=== PATIENT | male | born 1990 | race Caucasian/White ===

== ENCOUNTER 2018-11-24 16:29 | Emergency (ER) | payer OTHER ==
--- NOTE | 2018-11-24 16:42 | ER Report ---
History and Physical Time Seen By MD: 16:42 HPI/ROS CHIEF COMPLAINT: lightheadedness, fast heart rate HISTORY OF PRESENT ILLNESS: Patient is a 28 year old male presenting to the ED after he had a 20 minute episode of lightheadedness, increased pulse rate. Patient states it started at 3:30 this afternoon. States he got very lightheaded and felt his pulse increasing to over 200 bpm. Patient stated this lasted a few minutes and then his heart rate decreased to around 50. Stated at this time he felt his heard was beating hard and heavy. Patient felt out of it and stated his words were "jumbled". After feeling better, patient walked ar ound and then felt that he should go to [employer]. [employer] then referred him to the ED. 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 patient states he has had several pacemakers. States he currently has an AICD. His lower rate is 50 and upper rate is 222. It has two leads. Patient states he does not think he has ever gotten shocked from his ICD. REVIEW OF SYSTEMS: Respiratory: No cough, no dyspnea. Cardiovascular: See HPI Gastrointestinal: No vomiting, no abdominal pain. Musculoskeletal: No back pain. 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 He has had multiple cardiac surgeries. Patient has had multiple pacemakers, currently has an AICD. Unable To Obtain Past Medical: Refused Reviewed Nurses Notes: Yes Social History of Constitutional Vital Sign - Last 24 Hours 11/24/18 11/24/18 11/24/18 11/24/18 16:38 16:40 17:00 17:11 Pulse 77 74 Resp 16 14 B/P (MAP) 164/87 (112) 164/87 128/77 (94) Pulse Ox 94 94 O2 Delivery Room Air 11/24/18 11/24/18 11/24/18 11/24/18 17:30 18:00 18:30 19:00 Pulse 50 50 50 Resp 12 9 15 9 B/P (MAP) 126/71 (89) 126/73 (90) 134/80 (98) 130/73 (92) Pulse Ox 94 94 95 77 11/24/18 11/24/18 11/24/18 11/24/18 19:05 19:20 19:30 19:35 Pulse 50 57 51 Resp 7 9 12 B/P (MAP) 134/72 (92) Pulse Ox 96 96 96 11/24/18 19:50 Pulse 57 Resp 15 Pulse Ox 93 Physical Exam General Appearance: The patient is alert, has no immediate need for airway protection and no current signs of toxicity. Eyes: Pupils equal and round no injection. Respiratory: Chest is non tender, lungs are clear to auscultation. Cardiac: Regular rate and rhythm. Radial and pedal pulses 2+ and equal bilaterally. Gastrointestinal: Abdomen is soft and non tender, no masses, bowel sounds normal. Musculoskeletal: Neck: Neck is supple and non tender. Extremities have full range of motion and are non tender. Skin: No rashes or lesions. DIFFERENTIAL DIAGNOSIS: After history and physical exam differential diagnosis was considered for cardiac arrhythmia, electrolyte imbalance, infection. Medical Decision Making Data Points Result Diagram: 11/24/18 1720 11/24/18 1720 Laboratory Hematology Test 11/24/18 17:20 11/24/18 17:21 Red Blood Count 5.06 M/uL (4.00-5.60) Mean Corpuscular Volume 92.0 fL (80.0-96.0) Mean Corpuscular Hemoglobin 31.2 pg (26.0-33.0) Mean Corpuscular Hemoglobin Concent 33.9 g/dL (32.0-36.0) Red Cell Distribution Width 13.4 % (11.5-14.5) Mean Platelet Volume 9.6 fL (7.2-11.1) Neutrophils (%) (Auto) 68.3 % (39.4-72.5) Lymphocytes (%) (Auto) 18.8 % (17.6-49.6) Monocytes (%) (Auto) 10.7 % (4.1-12.4) Eosinophils (%) (Auto) 1.7 % (0.4-6.7) Basophils (%) (Auto) 0.5 % (0.3-1.4) Nucleated RBC Relative Count (auto) 0.0 /100WBC Neutrophils # (Auto) 3.6 K/uL (2.0-7.4) Lymphocytes # (Auto) 1.0 K/uL (1.3-3.6) Monocytes # (Auto) 0.6 K/uL (0.3-1.0) Eosinophils # (Auto) 0.1 K/uL (0.0-0.5) Basophils # (Auto) 0.0 K/uL (0.0-0.1) Nucleated RBC Absolute Count (auto) 0.00 K/uL Sodium Level 141 mmol/L (137-145) Potassium Level 4.9 mmol/L (3.5-5.0) Chloride Level 105 mmol/L (98-107) Carbon Dioxide Level 28 mmol/L (22-30) Blood Urea Nitrogen 20 mg/dl (9-21) Creatinine 1.10 mg/dl (0.66-1.25) Glomerular Filtration Rate Calc > 60.0 Random Glucose 100 mg/dl (75-110) Calcium Level 9.5 mg/dl (8.4-10.2) Magnesium Level 2.2 mg/dl (1.7-2.2) Total Bilirubin 0.8 mg/dl (0.2-1.3) Aspartate Amino Transf (AST/SGOT) 35 U/L (0-35) Alanine Aminotransferase (ALT/SGPT) 45 U/L (0-56) Alkaline Phosphatase 54 U/L (0-126) Troponin I < 0.012 ng/ml Total Protein 7.6 g/dl (6.3-8.2) Albumin 4.5 g/dl (3.5-5.0) Influenza Virus Type A (PCR) Negative (NEGATIVE) Influenza Virus Type B (PCR) Negative (NEGATIVE) Chemistry Test 11/24/18 17:20 11/24/18 17:21 White Blood Count 5.3 k/uL (4.5-11.0) Red Blood Count 5.06 M/uL (4.00-5.60) Hemoglobin 15.8 g/dL (14.0-18.0) Hematocrit 46.6 % (42.0-52.0) Mean Corpuscular Volume 92.0 fL (80.0-96.0) Mean Corpuscular Hemoglobin 31.2 pg (26.0-33.0) Mean Corpuscular Hemoglobin Concent 33.9 g/dL (32.0-36.0) Red Cell Distribution Width 13.4 % (11.5-14.5) Platelet Count 189 K/uL (150-450) Mean Platelet Volume 9.6 fL (7.2-11.1) Neutrophils (%) (Auto) 68.3 % (39.4-72.5) Lymphocytes (%) (Auto) 18.8 % (17.6-49.6) Monocytes (%) (Auto) 10.7 % (4.1-12.4) Eosinophils (%) (Auto) 1.7 % (0.4-6.7) Basophils (%) (Auto) 0.5 % (0.3-1.4) Nucleated RBC Relative Count (auto) 0.0 /100WBC Neutrophils # (Auto) 3.6 K/uL (2.0-7.4) Lymphocytes # (Auto) 1.0 K/uL (1.3-3.6) Monocytes # (Auto) 0.6 K/uL (0.3-1.0) Eosinophils # (Auto) 0.1 K/uL (0.0-0.5) Basophils # (Auto) 0.0 K/uL (0.0-0.1) Nucleated RBC Absolute Count (auto) 0.00 K/uL Glomerular Filtration Rate Calc > 60.0 Calcium Level 9.5 mg/dl (8.4-10.2) Magnesium Level 2.2 mg/dl (1.7-2.2) Total Bilirubin 0.8 mg/dl (0.2-1.3) Aspartate Amino Transf (AST/SGOT) 35 U/L (0-35) Alanine Aminotransferase (ALT/SGPT) 45 U/L (0-56) Alkaline Phosphatase 54 U/L (0-126) Troponin I < 0.012 ng/ml Total Protein 7.6 g/dl (6.3-8.2) Albumin 4.5 g/dl (3.5-5.0) Influenza Virus Type A (PCR) Negative (NEGATIVE) Influenza Virus Type B (PCR) Negative (NEGATIVE) EKG/Imaging EKG Interpretation 12 lead EKG: Rhythm: Sinus bradycardia with sinus arrhythmia, ventricular rate of 56 bpm [place]: Left axis deviation QRS: normal ST segments: normal Imaging 2 VIEWS CHEST INDICATION: Heart racing. COMPARISON: None available FINDINGS: Cardiomediastinal silhouette and pulmonary vessels within normal limits. Left subclavian 2-lead pacemaker is in place. Proximal aortic stent in place. There is no focal infiltrate or lobar consolidation. There is no pneumothorax or pleural effusion. No nodule. Upper abdomen is unremarkable. No acute bony abnormality. IMPRESSION: 1. No acute cardiopulmonary process. Report Dictated By: Britton Mata at 11/24/2018 7:11 PM Report E-Signed By: Britton Mata at 11/24/2018 7:13 PM ED Course/Re-evaluation ED Course Patient was admitted to an ED room and placed in a bed. History and physical were obtained. Differential diagnoses were obtained. IV was placed and blood drawn. Labs, EKG, Chest X-ray were obtained. Results were discussed with the patient. Patient will follow up with his director of physician practices back home. Patient discharged to home. Decision to Disposition Date: Nov 24, 2018 Decision to Disposition Time: 19:53 Depart Departure Latest Vital Signs Vital Signs Date Time Temp Pulse Resp B/P (MAP) Pulse Ox O2 Delivery O2 Flow Rate FiO2 11/24/18 19:50 57 15 93 11/24/18 19:30 134/72 (92) 11/24/18 16:40 Room Air Impression: Primary Impression: Irregular heart rate Condition: Improved Disposition: HOME OR SELF-CARE Patient Instructions: GENERAL ER DISCHARGE INSTRUCTIONS Additional Instructions: Increase fluid intake. Follow up with [facility] as needed. Return to the ER if condition worsens. Take your medications like normal. Follow up with Cardiology in the next 1-2 months. GEMA PRITCHARD Nov 24, 2018 16:42
[2018-11-24] MEDS ORDERED: METO25TA91 PO (16:43)
[2018-11-24] MEDS ORDERED: NS(*) 0.9% 1000 ML BAG 1,000 ML IV ONE (16:48)
--- NOTE | 2018-11-24 16:51 | EKG ---
FACILITY: [facility] PATIENT NAME: JULIANE SAAB : [id number] MR: [id number] V: [id number] EXAM DATE: ORDERING PHYSICIAN: GEMA PRITCHARD TECHNOLOGIST: CHRISTINA Test Reason : SYNCOPE Blood Pressure : / mmHG Vent. Rate : 056 BPM Atrial Rate : 056 BPM P-R Int : 174 ms QRS Dur : 104 ms QT Int : 396 ms P-R-T Axes : 055 -71 020 degrees QTc Int : 382 ms Sinus bradycardia with sinus arrhythmia Left axis deviation Inferior-posterior infarct , age undetermined Abnormal ECG No previous ECGs available Confirmed by JOHAN ANG ([id number]) on 11/24/2018 7:54:06 PM Referred By: FRANCHESKA Confirmed By:JOHAN ANG
[2018-11-24 17:28] LABS: PLATELET COUNT, AUTOMATED 189 K/uL (150-450)
--- NOTE | 2018-11-24 19:17 | RADIOLOGY IMAGING REPORT ---
FACILITY: [facility] [place] PATIENT NAME: Reese Vanegas : 1990 MR: [id number] V: [id number] EXAM DATE: ORDERING PHYSICIAN: GEMA PRITCHARD TECHNOLOGIST: [place] [facility] [place] Reese Van[place] : 1990 Visit/Account:[id number] Date of Sevice: 11/24/2018 2 VIEWS CHEST INDICATION: Heart racing. COMPARISON: None available FINDINGS: Cardiomediastinal silhouette and pulmonary vessels within normal limits. Left subclavian 2-lead pacem jeanne is in place. Proximal aortic stent in place. There is no focal infiltrate or lobar consolidation. There is no pneumothorax or pleural effusion. No nodule. Upper abdomen is unremarkable. No acute bony abnormality. IMPRESSION: 1. No acute cardiopulmonary process. Report Dictated By: Britton Mata at 11/24/2018 7:11 PM Report E-Signed By: Britton Mata at 11/24/2018 7:13 PM WSN:[id number]
[2018-11-24 19:30] VITALS: BP 134/72
== END 2018-11-24 20:06 | disposition home or self-care (01) ==
LOC: ER 16:48
DX: I49.9 Cardiac arrhythmia, unspecified (principal); Z95.810 Presence of automatic (implantable) cardiac defibrillator
CPT/HCPCS: 71046; 83735; 84443; 84484; 85025; 87502; 93005; 96360; 99284; J7030; 82040; 82247; 82310; 82374; 82435; 82565; 82947; 84075; 84132; 84155; 84295; 84450; 84460; 84520; 99283

== ENCOUNTER 2019-03-15 23:08 | Emergency (ER) | payer OTHER ==
--- NOTE | 2019-03-15 23:22 | ER Report ---
History and Physical Time Seen By MD: 23:09 Hx. of Stated Complaint: PATIENT HAS INTERNAL DEFIB THAT SHOCKED HIM ABOUT IN AN HOUR AGO. (HESHAM SWAIN DO) Time Seen By MD: 07:00 (TARYN ORTIZ DO) HPI/ROS CHIEF COMPLAINT: AICD discharged HISTORY OF PRESENT ILLNESS: 29-year-old male brought in by ambulance from home. Approximate one hour ago. He has AICD discharge. Patient had surgery as a child for transposition of the great vessels. He's had numerous pacemakers to monitor his heart rate. He's never had his AICD discharge before. He had tachycardia back in November. REVIEW OF SYSTEMS: Respiratory: No cough, no dyspnea. Cardiovascular: As above Gastrointestinal: No vomiting, no abdominal pain. Musculoskeletal: No back pain. (HESHAM SWAIN DO) HPI/ROS Please see Dr. Swain's note (TARYN ORTIZ DO) Allergies: Coded Allergies: No Known Drug Allergies (Unverified , 11/24/18) Home Meds Reported Medications Metoprolol Succinate (TOPROL XL) 25 Mg Tab.er.24h, 1 TAB PO QAM, TAB 11/24/18 Constitutional Vital Sign - Last 24 Hours 03/15/19 03/15/19 03/15/19 03/15/19 23:09 23:23 23:30 23:38 Temp 98.5 Pulse 89 93 80 Resp 24 23 8 B/P (MAP) 146/82 119/77 (91) Pulse Ox 92 91 89 O2 Delivery Room Air 03/15/19 03/16/19 03/16/19 03/16/19 23:53 00:00 00:30 00:38 Pulse 101 94 Resp 20 28 B/P (MAP) 125/83 (97) 123/65 (84) 03/16/19 03/16/19 03/16/19 03/16/19 00:53 01:00 01:08 01:28 Pulse 84 80 76 Resp 11 9 10 B/P (MAP) 120/75 (90) Pulse Ox 91 91 03/16/19 03/16/19 03/16/19 03/16/19 01:30 01:43 02:00 02:13 Pulse 71 50 Resp 13 15 B/P (MAP) 115/59 (77) 106/60 (75) Pulse Ox 91 90 03/16/19 03/16/19 03/16/19 03/16/19 02:28 02:30 02:43 02:58 Pulse 50 53 53 Resp 15 15 16 B/P (MAP) 114/66 (82) Pulse Ox 90 93 92 03/16/19 03/16/19 03/16/19 03/16/19 03:00 03:05 03:20 03:30 Pulse 67 50 Resp 22 15 B/P (MAP) 109/58 (75) 109/56 (73) Pulse Ox 93 94 03/16/19 03/16/19 03/16/19 03/16/19 03:35 03:50 04:00 04:05 Pulse 50 50 60 Resp 14 15 14 B/P (MAP) 114/68 (83) Pulse Ox 92 90 93 03/16/19 03/16/19 03/16/19 03/16/19 04:20 04:30 04:40 04:55 Pulse 73 50 55 Resp 10 B/P (MAP) 117/66 (83) Pulse Ox 91 03/16/19 03/16/19 03/16/19 03/16/19 05:00 05:10 05:15 05:20 Pulse 50 73 50 Resp 15 17 0 B/P (MAP) 116/68 (84) Pulse Ox 90 90 91 03/16/19 03/16/19 03/16/19 03/16/19 05:30 05:35 05:40 05:45 Pulse 55 67 50 Resp 33 24 B/P (MAP) 119/67 (84) Pulse Ox 91 93 03/16/19 03/16/19 03/16/19 03/16/19 05:50 05:55 06:00 06:10 Pulse 49 50 50 Resp 25 25 28 B/P (MAP) 110/62 (78) Pulse Ox 89 93 93 03/16/19 03/16/19 03/16/19 03/16/19 06:25 06:30 06:40 06:55 Pulse 50 50 50 Resp 14 17 17 B/P (MAP) 114/72 (86) Pulse Ox 91 89 90 03/16/19 03/16/19 03/16/19 03/16/19 07:00 07:05 07:25 07:45 Pulse 71 72 49 Resp 28 27 B/P (MAP) 120/72 (88) Pulse Ox 93 03/16/19 03/16/19 03/16/19 03/16/19 08:05 08:25 08:45 08:46 Pulse 49 54 59 64 Resp 13 19 11 10 03/16/19 03/16/19 03/16/19 03/16/19 09:06 09:26 09:46 10:26 Pulse 49 52 52 49 Resp 32 21 22 03/16/19 03/16/19 03/16/19 03/16/19 10:28 10:48 11:08 11:28 Pulse 49 49 49 48 Resp 37 15 15 9 Intake and Output 03/15/19 03/15/19 03/16/19 15:01 23:01 07:01 Intake Total 1000 ml Balance 1000 ml (TARYN ORTIZ DO) Physical Exam Vital signs stable, afebrile, pulse ox normal General Appearance: The patient is alert, has no immediate need for airway protection and no current signs of toxicity. No acute distress HEENT: Pupils equal and round no injection. TMs normal, oropharynx without redness or exudate Respiratory: Chest is non tender, lungs are clear to auscultation. Cardiac: regular rate and rhythm Gastrointestinal: Abdomen is soft and non tender, no masses, bowel sounds normal. Musculoskeletal: Neck: Neck is supple and non tender. Extremities have full range of motion and are non tender. Skin: No rashes or lesions. DIFFERENTIAL DIAGNOSIS: After history and physical exam differential diagnosis was considered for chest pain including but not limited to myocardial ischemia, pericarditis pulmonary embolus, AICD discharge, dysrhythmia chest wall pain, pleural inflammation and pulmonary infectious causes. (HESHAM SWAIN DO) Physical Exam Please see Dr. Swain's note (TARYN ORTIZ DO) Medical Decision Making Data Points Result Diagram: 03/15/19 2344 03/16/19 0403 Laboratory Hematology Test 03/15/19 23:44 03/16/19 00:00 03/16/19 04:03 Red Blood Count 4.97 M/uL (4.00-5.60) Mean Corpuscular Volume 91.0 fL (80.0-96.0) Mean Corpuscular Hemoglobin 31.4 pg (26.0-33.0) Mean Corpuscular Hemoglobin Concent 34.6 g/dL (32.0-36.0) Red Cell Distribution Width 13.4 % (11.5-14.5) Mean Platelet Volume 9.9 fL (7.2-11.1) Neutrophils (%) (Auto) 70.9 % (39.4-72.5) Lymphocytes (%) (Auto) 18.6 % (17.6-49.6) Monocytes (%) (Auto) 10.0 % (4.1-12.4) Eosinophils (%) (Auto) 0.3 % (0.4-6.7) Basophils (%) (Auto) 0.2 % (0.3-1.4) Nucleated RBC Relative Count (auto) 0.0 /100WBC Neutrophils # (Auto) 4.4 K/uL (2.0-7.4) Lymphocytes # (Auto) 1.2 K/uL (1.3-3.6) Monocytes # (Auto) 0.6 K/uL (0.3-1.0) Eosinophils # (Auto) 0.0 K/uL (0.0-0.5) Basophils # (Auto) 0.0 K/uL (0.0-0.1) Nucleated RBC Absolute Count (auto) 0.00 K/uL Peripheral Blood Smear Yes Y/N Magnesium Level 1.8 mg/dl (1.7-2.2) Total Bilirubin 0.8 mg/dl (0.2-1.3) Aspartate Amino Transf (AST/SGOT) 34 U/L (0-35) Alanine Aminotransferase (ALT/SGPT) 49 U/L (0-56) Alkaline Phosphatase 71 U/L (0-126) B-Type Natriuretic Peptide 14 pg/ml (0-100) Total Protein 6.7 g/dl (6.3-8.2) Albumin 4.1 g/dl (3.5-5.0) Total Creatine Kinase 240 U/L (55-170) Sodium Level 140 mmol/L (137-145) Potassium Level 4.4 mmol/L (3.5-5.0) Chloride Level 109 mmol/L (98-107) Carbon Dioxide Level 20 mmol/L (22-30) Blood Urea Nitrogen 25 mg/dl (9-21) Creatinine 1.50 mg/dl (0.66-1.25) Glomerular Filtration Rate Calc 55.0 Random Glucose 106 mg/dl (75-110) Calcium Level 9.0 mg/dl (8.4-10.2) Troponin I 0.111 ng/ml Chemistry Test 03/15/19 23:44 03/16/19 00:00 03/16/19 04:03 White Blood Count 6.3 k/uL (4.5-11.0) Red Blood Count 4.97 M/uL (4.00-5.60) Hemoglobin 15.6 g/dL (14.0-18.0) Hematocrit 45.2 % (42.0-52.0) Mean Corpuscular Volume 91.0 fL (80.0-96.0) Mean Corpuscular Hemoglobin 31.4 pg (26.0-33.0) Mean Corpuscular Hemoglobin Concent 34.6 g/dL (32.0-36.0) Red Cell Distribution Width 13.4 % (11.5-14.5) Platelet Count 149 K/uL (150-450) Mean Platelet Volume 9.9 fL (7.2-11.1) Neutrophils (%) (Auto) 70.9 % (39.4-72.5) Lymphocytes (%) (Auto) 18.6 % (17.6-49.6) Monocytes (%) (Auto) 10.0 % (4.1-12.4) Eosinophils (%) (Auto) 0.3 % (0.4-6.7) Basophils (%) (Auto) 0.2 % (0.3-1.4) Nucleated RBC Relative Count (auto) 0.0 /100WBC Neutrophils # (Auto) 4.4 K/uL (2.0-7.4) Lymphocytes # (Auto) 1.2 K/uL (1.3-3.6) Monocytes # (Auto) 0.6 K/uL (0.3-1.0) Eosinophils # (Auto) 0.0 K/uL (0.0-0.5) Basophils # (Auto) 0.0 K/uL (0.0-0.1) Nucleated RBC Absolute Count (auto) 0.00 K/uL Peripheral Blood Smear Yes Y/N Magnesium Level 1.8 mg/dl (1.7-2.2) Total Bilirubin 0.8 mg/dl (0.2-1.3) Aspartate Amino Transf (AST/SGOT) 34 U/L (0-35) Alanine Aminotransferase (ALT/SGPT) 49 U/L (0-56) Alkaline Phosphatase 71 U/L (0-126) B-Type Natriuretic Peptide 14 pg/ml (0-100) Total Protein 6.7 g/dl (6.3-8.2) Albumin 4.1 g/dl (3.5-5.0) Total Creatine Kinase 240 U/L (55-170) Glomerular Filtration Rate Calc 55.0 Calcium Level 9.0 mg/dl (8.4-10.2) Troponin I 0.111 ng/ml (TARYN ORTIZ DO) EKG/Imaging EKG Interpretation 12 lead EK Rhythm: normal sinus rhythm with sinus arrhythmia [place]: Left axis deviation QRS: Left ventricular hypertrophy with repolarization abnormality,? Inferior posterior infarct, age indeterminate ST segments: Nonspecific diffuse ST changes, comparison to previous EKG dated 11/24/18, no significant change (HESHAM SWAIN DO) Imaging PATIENT NAME: Reese Vanegas : 1990 MR: [id number] V: [id number] EXAM DATE: ORDERING PHYSICIAN: HESHAM SWAIN TECHNOLOGIST: [facility]: [facility] [place] Patient: Reese Vanegas : 1990 Visit/Account:[id number] Date of Sevice: 03/15/2019 CHEST SINGLE AP Indication: Chest Pain Comparison: November 24, 2018 Findings: Heart size within normal limits. Grossly unchanged appearance of left chest wall pacer/AICD device without visualized complication. There is a vascular stent projecting over the right heart border. There is no focal infiltrate or lobar consolidation. No pneumothorax or pleural effusion. IMPRESSION: 1. No acute cardiopulmonary process. (TARYN ORTIZ DO) ED Course/Re-evaluation Clinical Indication for ER IV: Hydration, IV Access ED Course Patient was admitted to an examination room. H&P was done. The differential diagnosis was considered. Patient had spontaneous discharge of his AICD tonight. Patient otherwise feels fine. EKG performed shows no obvious changes compared to his previous EKG. Diagnostic studies returned with an elevated troponin of 0.041 in the indeterminate zone likely from the discharge of the AICD. Patient's BUN & creatinine are grossly elevated at 27 and 2.2. Compared to previous visit from November showing 20 and 1.1. Patient on further questioning admits to heavy workout regime where he is taking supplemental creatine. Patient also admits to gout and taking NSAIDs in the form of Indocin for great toe pain. He last thinks he took some Indocin 4-5 days ago. Approximately 2-3 doses. Patient denies any history of rhabdomyolysis. A CPK was added to his blood studies from his 1st arrival. Repeat troponin and BNP are ordered at 0 4 AM after fluid hydration. 03/16/2019 5:01:[address] Sheldon social sciences department chair fiction and nonfiction prose writer at [place], [place]. He would be willing to accept the patient but they have no bed availability at this time. He advises rechecking back in approximately 3-4 hours. He will notify the daytime adult congenital docs of his status. Decision to Disposition Date: Mar 16, 2019 Decision to Disposition Time: 00:49 (HESHAM SWAIN DO) ED Course Please see Dr. Swain's note for further details. I assume patient care at shift change at 7:00. Patient remained hemodynamically stable throughout ED course. Patient was accepted to [facility] in [facility] by Dr. Sheldon. Patient was transferred via ambulance for further treatment and care. Decision to Disposition Date: Mar 16, 2019 Decision to Disposition Time: 12:35 (TARYN ORTIZ DO) Depart Departure Latest Vital Signs Vital Signs Date Time Temp Pulse Resp B/P (MAP) Pulse Ox O2 Delivery O2 Flow Rate FiO2 03/16/19 11:28 48 9 03/16/19 07:05 93 03/16/19 07:00 120/72 (88) 03/15/19 23:09 98.5 Room Air (TARYN ORTIZ DO) Impression: Primary Impression: AICD discharge Additional Impressions: Vessels transposition, great Acute renal failure Elevated troponin Condition: Improved Disposition: XFER TO ACUTE CARE HOSPITAL ([facility]) Problem Qualifiers Additional Impressions: Acute renal failure Acute renal failure type: unspecified Qualified Codes: N17.9 - Acute kidney failure, unspecified HESHAM SWAIN DO Mar 15, 2019 23:22 TARYN ORTIZ DO Mar 16, 2019 07:26
--- NOTE | 2019-03-15 23:47 | EKG ---
FACILITY: [facility] - [place] PATIENT NAME: JULIANE SAAB : [id number] MR: [id number] V: [id number] EXAM DATE: ORDERING PHYSICIAN: HESHAM TIERNEY TECHNOLOGIST: YONI Braga Reason : HX VTAC, AICD Blood Pressure : / mmHG Vent. Rate : 082 BPM Atrial Rate : 082 BPM P-R Int : 158 ms QRS Dur : 104 ms QT Int : 366 ms P-R-T Axes : 061 -66 059 degrees QTc Int : 427 ms Sinus rhythm Left axis deviation Nonspecific interventricular conduction delay T wave inversion V1-2 Abnormal ECG Confirmed by KURT GRAYSON ([id number]) on 03/16/2019 6:52:09 AM Referred By: Confirmed By:KURT GRAYSON
[2019-03-16] LABS: PLATELET COUNT, AUTOMATED 149 K/uL (150-450)
[2019-03-16] MEDS ORDERED: ACETAMINOPHEN 325 MG TAB PO ONE (00:50)
--- NOTE | 2019-03-16 00:54 | RADIOLOGY IMAGING REPORT ---
FACILITY: [facility] PATIENT NAME: Reese Vanegas : 1990 MR: [id number] V: [id number] EXAM DATE: ORDERING PHYSICIAN: HESHAM TIERNEY TECHNOLOGIST: Location: [facility] Patient: Reese Vanegas : 1990 Visit/Account:[id number] Date of Sevice: 03/15/2019 CHEST SINGLE AP Indication: Chest Pain Comparison: November 24, 2018 Findings: Heart size within normal limits. Grossly unchanged appearance of left chest wall pacer/AICD device without visualized complication. There is a vascular stent projecting over the right heart border. There is no focal infiltrate or lobar consolidation. No pneumothorax or pleural effusion. IMPRESSION: 1. No acute cardiopulmonary process. Report Dictated By: Noah Meza MD at 03/16/2019 12:47 AM Report E-Signed By: Noah Meza MD at 03/16/2019 12:48 AM WSN:[id number]
[2019-03-16] MEDS ORDERED: NS(*) 0.9% 1000 ML BAG 1,000 ML IV ONE (01:00)
[2019-03-16] MEDS ORDERED: ASPIRIN 81 MG CHEW PO ONE (05:05)
[2019-03-16] MEDS ORDERED: METOPROLOL SUCC XL 25 MG TABCR PO ONE (05:20)
[2019-03-16 07:00] VITALS: BP 120/72
== END 2019-03-16 13:29 | disposition short-term general hospital (02) ==
LOC: ER 23:21
DX: Q20.3 Discordant ventriculoarterial connection (principal); T82.897A Other specified complication of cardiac prosthetic devices, implants and grafts, initial encounter; R79.89 Other specified abnormal findings of blood chemistry; I45.89 Other specified conduction disorders; R07.9 Chest pain, unspecified
CPT/HCPCS: 36415; 71045; 82550; 83735; 83880; 84484; 85025; 93005; 99285; J7030; 82040; 82247; 82310; 82374; 82435; 82565; 82947; 84075; 84132; 84155; 84295; 84450; 84460; 84520

== ENCOUNTER → 2019-03-15 | Outpatient (CLI) | payer OTHER ==
[~2019-03-15] MED LIST: METO25TA91 PO
== END ==
LOC: AMB 22:40
PROVIDERS: ATTEND Nurse Practitioner
DX: I49.9 Cardiac arrhythmia, unspecified (principal); F41.9 Anxiety disorder, unspecified
CPT/HCPCS: A0425; A0427

== ENCOUNTER → 2019-03-16 | Outpatient (CLI) | payer OTHER | LOC: AMB 13:07 | PROVIDERS: ATTEND Nurse Practitioner | DX: R79.89 Other specified abnormal findings of blood chemistry (principal); Z95.0 Presence of cardiac pacemaker | CPT/HCPCS: A0425; A0428 ==

== ENCOUNTER 2019-05-11 14:38 | Emergency (ER) | payer OTHER ==
--- NOTE | 2019-05-11 14:39 | ER Report ---
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 Patient reports that he had multiple episodes of near syncope prompting evaluation. Patient was found be orthostatic by EMS. Patient denies chest pain, shortness of breath, fevers or chills. Patient does take Toprol, sotalol,eliquis. REVIEW OF SYSTEMS: Constitutional: No fever, no chills. Eyes: No discharge. ENT: No sore throat. Cardiovascular: No chest pain, no palpitations. Respiratory: No cough, no shortness of breath. Gastrointestinal: No abdominal pain, no vomiting. Genitourinary: No hematuria. Musculoskeletal: No back pain. Skin: No rashes. Neurological: No headache. + near syncope, generalized fatigue Allergies: Coded Allergies: No Known Drug Allergies (Unverified , 11/24/18) Home Meds Reported Medications Metoprolol Succinate (TOPROL XL) 25 Mg Tab.er.24h, 1 TAB PO QAM, TAB 11/24/18 Constitutional Vital Sign - Last 24 Hours 05/11/19 05/11/19 14:40 14:49 Temp 99.4 Pulse 66 Resp 16 B/P (MAP) 130/70 Pulse Ox 91 O2 Delivery Room Air O2 Flow Rate 2.0 Physical Exam General Appearance: The patient is alert, has no immediate need for airway protection and no signs of toxicity. NAD Eyes: Pupils equal and round no pallor or injection. ENT, Mouth: Mucous membranes are dry Respiratory: There are no retractions, lungs are clear to auscultation. Cardiovascular: Regular rate and rhythm. Gastrointestinal: Abdomen is soft and non tender, no masses, bowel sounds normal. Neurological: Alert and oriented, no focal neurological deficits Skin: Warm and dry, no rashes. Musculoskeletal: Neck is supple non tender. Extremities are nontender, nonswollen and have full range of motion. DIFFERENTIAL DIAGNOSIS: After history and physical exam differential diagnosis was considered for syncope including but not limited to vasovagal syncope, arrhythmia, dehydration, and blood loss. Medical Decision Making Data Points Result Diagram: 05/11/19 1414 05/11/19 1414 Laboratory Hematology Test 05/11/19 14:14 White Blood Count 9.7 k/uL (4.5-11.0) Red Blood Count 5.91 M/uL (4.00-5.60) H Hemoglobin 18.7 g/dL (14.0-18.0) H Hematocrit 54.4 % (42.0-52.0) H Mean Corpuscular Volume 92.1 fL (80.0-96.0) Mean Corpuscular Hemoglobin 31.6 pg (26.0-33.0) Mean Corpuscular Hemoglobin Concent 34.3 g/dL (32.0-36.0) Red Cell Distribution Width 14.1 % (11.5-14.5) Platelet Count 147 K/uL (150-450) L Mean Platelet Volume 10.4 fL (7.2-11.1) Neutrophils (%) (Auto) 86.9 % (39.4-72.5) H Lymphocytes (%) (Auto) 8.2 % (17.6-49.6) L Monocytes (%) (Auto) 4.5 % (4.1-12.4) Eosinophils (%) (Auto) 0.0 % (0.4-6.7) L Basophils (%) (Auto) 0.4 % (0.3-1.4) Nucleated RBC Relative Count (auto) 0.0 /100WBC Neutrophils # (Auto) 8.4 K/uL (2.0-7.4) H Lymphocytes # (Auto) 0.8 K/uL (1.3-3.6) L Monocytes # (Auto) 0.4 K/uL (0.3-1.0) Eosinophils # (Auto) 0.0 K/uL (0.0-0.5) Basophils # (Auto) 0.0 K/uL (0.0-0.1) Nucleated RBC Absolute Count (auto) 0.00 K/uL Chemistry Test 05/11/19 14:14 Sodium Level 139 mmol/L (137-145) Potassium Level 4.0 mmol/L (3.5-5.0) Chloride Level 99 mmol/L (98-107) Carbon Dioxide Level 25 mmol/L (22-30) Blood Urea Nitrogen 20 mg/dl (9-21) Creatinine 1.50 mg/dl (0.66-1.25) Glomerular Filtration Rate Calc 55.0 Random Glucose 110 mg/dl (75-110) Calcium Level 9.6 mg/dl (8.4-10.2) Total Bilirubin 2.4 mg/dl (0.2-1.3) Aspartate Amino Transf (AST/SGOT) 38 U/L (0-35) Alanine Aminotransferase (ALT/SGPT) 59 U/L (0-56) Alkaline Phosphatase 72 U/L (0-126) Troponin I < 0.012 ng/ml Total Protein 9.1 g/dl (6.3-8.2) Albumin 5.0 g/dl (3.5-5.0) Lipase 194 U/L (23-300) Urinalysis Test 05/11/19 00:00 Urine Color Yellow Urine Clarity Clear Urine pH 5.0 pH (4.8-9.5) Urine Specific [place] 1.029 Urine Protein Negative mg/dL (NEGATIVE) Urine Glucose (UA) Negative mg/dL (NEGATIVE) Urine Ketones Trace mg/dL (NEGATIVE) Urine Blood Negative (NEGATIVE) Urine Nitrite Negative (NEGATIVE) Urine Bilirubin Negative (NEGATIVE) Urine Urobilinogen Negative mg/dL (0.2-1.9) Urine Leukocyte Esterase Negative (NEGATIVE) Urine RBC <1 /HPF (0-2/HPF) Urine WBC 1 /HPF (0-5/HPF) Urine Squamous Epithelial Cells Few /LPF (</=FEW) Urine Bacteria Negative /HPF (NONE-FEW) Urine Hyaline Casts Few /LPF (NONE-FEW) Urine Mucus Few /HPF (NONE-FEW) EKG/Imaging EKG Interpretation 12 lead EKG: Electronic atrial pacemaker, ventricular rate 60, QTC 4:30 Rhythm: Electronic atrial pacemaker Imaging PATIENT NAME: Reese Vanegas : 1990 MR: [id number] V: [id number] EXAM DATE: ORDERING PHYSICIAN: TARYN ORTIZ TECHNOLOGIST: Location: [facility] Patient: Reese Vanegas : 1990 Visit/Account:[id number] Date of Sevice: 05/11/2019 CT ABDOMEN PELVIS W/ CON HISTORY: Elevated transaminitis TECHNIQUE: Following administration of IV contrast contiguous axial images acquired through the abdomen/pelvis. Coronal and sagittal reformatting also performed.Dose Lowering Technique One of the following dose optimization techniques was utilized in the performance of this exam: Automated exposure control; adjustment of the mA and/or kV according to the patient's size; or use of an iterative reconstruction technique. Specific details can be referenced in the facility's radiology CT exam operational policy. CONTRAST: 75 mL Isovue-370 COMPARISON: None. FINDINGS: Visualized lung bases: Incompletely imaged are cardiac pacemaker/AICD leads Hepatobiliary: Negative. Spleen: Negative. Adrenals: Negative. Pancreas: Negative. Kidneys ureters or bladder: Negative. Genitalia: Negative. GI: There is diverticulosis of the left-sided the colon although no CT evidence of acute diverticulitis Vessels/spaces/nodes: Negative. Bones/soft tissues: Bilateral inguinal hernias containing fat. Mild spondylotic changes of the lower thoracic spine Additional findings: None pertinent. IMPRESSION: Diverticulosis of the left-sided the colon Additional chronic findings as described Report Dictated By: Maya Higginbotham MD at 05/11/2019 3:42 PM Report E-Signed By: Maya Higginbotham MD at 05/11/2019 3:49 PM WSN:[email or web address] PATIENT NAME: Reese Vanegas : 1990 MR: [id number] V: [id number] EXAM DATE: [id number] ORDERING PHYSICIAN: TARYN ORTIZ TECHNOLOGIST: Location: [facility] Patient: Reese Vanegas : 1990 Visit/Account:[id number] Date of Sevice: 05/11/2019 Exam type: CHEST SINGLE AP History: Near syncope, elevated transaminases, heart issues Comparison: March 15, 2019. Findings: Again noted is a vascular stent projecting over the right heart border. Again is a dual lead cardiac pacemaker/AICD device. Cardiac silhouette does not appear enlarged. There is mild chronic peribronchial thickening bilaterally. There is no evidence of acute pulmonary consolidation pleural effusions or overt pulmonary edema. IMPRESSION: 1. No acute cardiopulmonary process is seen Chronic changes as described above Report Dictated By: Maya Higginbotham MD at 05/11/2019 3:40 PM Report E-Signed By: Maya Higginbotham MD at 05/11/2019 3:42 PM WSN:[email or web address] PATIENT NAME: Reese Vanegas : 1990 MR: [id number] V: [id number] EXAM DATE: ORDERING PHYSICIAN: TARYN ORTIZ TECHNOLOGIST: Location: [facility] Patient: Reese Vanegas : 1990 Visit/Account:[id number] Date of Sevice: 05/11/2019 CT Head without contrast Indication: No syncope. Neck pain and stiffness. Comparison: None available Technique: Axial CT images were obtained through the brain from the skull base to the vertex without administration of IV contrast. Reformatted coronal and sagittal images were also obtained. One of the following dose optimization techniques was utilized in the performance of this exam: automated exposure control; adjustment of the mA and/or kV according to the patient's size; or use of an iterative reconstruction technique. Specific details can be referenced in the facility's radiology CT exam operational policy. Findings: No evidence of mass, mass effect, or midline shift. No acute intracranial hemorrhage or acute territorial infarction. No extra-axial fluid collection or hydrocephalus. No abnormal density. Bates/white matter differentiation appears normal. Bony structures show no fractures or lesions. The visualized paranasal sinuses and mastoid air cells are clear. IMPRESSION: 1. Negative unenhanced CT of the head. Report Dictated By: Britton Mata at 05/11/2019 3:43 PM Report E-Signed By: Britton Mata at 05/11/2019 3:47 PM WSN:[id number] ED Course/Re-evaluation ED Course Patient is a 29-year-old male here with complaints of near syncope in the setting of dehydration with positive orthostatic hypotension. Patient admits that he has not been keeping up with his fluids over the past [address] imaging of the head showed no acute finding this, chest x-ray was clear. CT imaging of the abdomen and pelvis was completed after bilirubin, LFTs came back mildly elevated. CT imaging of the abdomen and pelvis showed no acute findings. Creatinine came back mildly elevated at 1.5, based on clinical examination likel y secondary to prerenal etiology such as dehydration. Patient's orthostatics were reassessed after 2 L normal saline bolus which improved. Troponin was negative. EKG showed normal sinus rhythm. I updated the patient regarding these findings and he voiced understanding. Recommend close PCP follow-up in the next 2-3 days. Strict return precautions provided. Patient was hemodynamically stable at time of discharge. Decision to Disposition Date: May 11, 2019 Decision to Disposition Time: 17:32 Depart Departure Latest Vital Signs Vital Signs Date Time Temp Pulse Resp B/P (MAP) Pulse Ox O2 Delivery O2 Flow Rate FiO2 05/11/19 14:49 2.0 05/11/19 14:40 99.4 66 16 130/70 91 Room Air Impression: Primary Impression: Dehydration Additional Impression: RONAN (acute kidney injury) Condition: Improved Disposition: HOME OR SELF-CARE Patient Instructions: Dehydration (ED) Additional Instructions: Please drink plenty of water. Please return immediately if you develop fevers, chills, chest pain, shortness of breath, abdominal pain, nausea, vomiting. Please follow-up with your primary care provider in the next 24-48 hours. Problem Qualifiers TARYN ORTIZ DO May 11, 2019 14:39
[2019-05-11] MEDS ORDERED: NS(*) 0.9% 1000 ML BAG 1,000 ML IV ONE ×2 (14:51→15:35)
[2019-05-11 15:06] LABS: PLATELET COUNT, AUTOMATED 147 K/uL (150-450)
[2019-05-11] MEDS ORDERED: IOPAMIDOL 76% 100 ML INFUS BTL 100 ML ONE (15:31)
--- NOTE | 2019-05-11 15:52 | RADIOLOGY IMAGING REPORT ---
FACILITY: [facility] PATIENT NAME: Reese Vanegas : 1990 MR: [id number] V: [id number] EXAM DATE: ORDERING PHYSICIAN: TARYN ORTIZ TECHNOLOGIST: Location: [facility] Patient: Reese Vanegas : 1990 Visit/Account:[id number] Date of Sevice: 05/11/2019 Exam type: CHEST SINGLE AP History: Near syncope, elevated transaminases, heart issues Comparison: March 15, 2019. Findings: Again noted is a vascular stent projecting over the right heart border. Again is a dual lead cardiac pacemaker/AICD device. Cardiac silhouette does not appear enlarged. There is mild chronic peribron chial thickening bilaterally. There is no evidence of acute pulmonary consolidation pleural effusion s or overt pulmonary edema. IMPRESSION: 1. No acute cardiopulmonary process is seen Chronic changes as described above Report Dictated By: Maya Higginbotham MD at 05/11/2019 3:40 PM Report E-Signed By: Maya Higginbotham MD at 05/11/2019 3:42 PM WSN:[email or web address]
--- NOTE | 2019-05-11 15:56 | RADIOLOGY IMAGING REPORT ---
FACILITY: [facility] [place] PATIENT NAME: Reese Vanegas : 1990 MR: [id number] V: [id number] EXAM DATE: ORDERING PHYSICIAN: TARYN ORTIZ TECHNOLOGIST: Location: [facility] Patient: Reese Vanegas : 1990 Visit/Account:[id number] Date of Sevice: 05/11/2019 CT Head without contrast Indication: No syncope. Neck pain and stiffness. Comparison: None available Technique: Axial CT images were obtained through the brain from the skull base to the vertex without administration of IV contrast. Reformatted coronal and sagittal images were also obtained. One of the following dose optimization techniques was utilized in the performance of this exam: autom ated exposure control; adjustment of the mA and/or kV according to the patient's size; or use of an i terative reconstruction technique. Specific details can be referenced in the facility's radiology CT exam operational policy. Findings: No evidence of mass, mass effect, or midline shift. No acute intracranial hemorrhage or acute territorial infarction. No extra-axial fluid collection or hydrocephalus. No abnormal density. Bates/white matter differentiat ion appears normal. Bony structures show no fractures or lesions. The visualized paranasal sinuses and mastoid air cells are clear. IMPRESSION: 1. Negative unenhanced CT of the head. Report Dictated By: Britton Mata at 05/11/2019 3:43 PM Report E-Signed By: Britton Mata at 05/11/2019 3:47 PM WSN:[id number]
--- NOTE | 2019-05-11 15:57 | RADIOLOGY IMAGING REPORT ---
FACILITY: [facility] PATIENT NAME: Reese Vanegas : 1990 MR: [id number] V: [id number] EXAM DATE: ORDERING PHYSICIAN: TARYN ORTIZ TECHNOLOGIST: Location: [facility] Patient: Reese Vanegas : 1990 Visit/Account:[id number] Date of Sevice: 05/11/2019 CT ABDOMEN PELVIS W/ CON HISTORY: Elevated transaminitis TECHNIQUE: Following administration of IV contrast contiguous axial images acquired through the abdom en/pelvis. Coronal and sagittal reformatting also performed.Dose Lowering Technique One of the following dose optimization techniques was utilized in the performance of this exam: Autom ated exposure control; adjustment of the mA and/or kV according to the patient's size; or use of an i terative reconstruction technique. Specific details can be referenced in the facility's radiology C T exam operational policy. CONTRAST: 75 mL Isovue-370 COMPARISON: None. FINDINGS: Visualized lung bases: Incompletely imaged are cardiac pacemaker/AICD leads Hepatobiliary: Negative. Spleen: Negative. Adrenals: Negative. Pancreas: Negative. Kidneys ureters or bladder: Negative. Genitalia: Negative. GI: There is diverticulosis of the left-sided the colon although no CT evidence of acute diverticuli tis Vessels/spaces/nodes: Negative. Bones/soft tissues: Bilateral inguinal hernias containing fat. Mild spondylotic changes of the lowe r thoracic spine Additional findings: None pertinent. IMPRESSION: Diverticulosis of the left-sided the colon Additional chronic findings as described Report Dictated By: Maya Higginbotham MD at 05/11/2019 3:42 PM Report E-Signed By: Maya Higginbotham MD at 05/11/2019 3:49 PM WSN:[email or web address]
[2019-05-11 17:34] VITALS: BP 97/57
--- NOTE | 2019-05-11 22:36 | EKG ---
FACILITY: [facility] [place] PATIENT NAME: JULIANE SAAB : [id number] MR: [id number] V: [id number] EXAM DATE: ORDERING PHYSICIAN: TARYN ORTIZ TECHNOLOGIST: Test Reason : Blood Pressure : / mmHG Vent. Rate : 060 BPM Atrial Rate : 060 BPM P-R Int : 128 ms QRS Dur : 092 ms QT Int : 430 ms P-R-T Axes : 091 -73 040 degrees QTc Int : 430 ms Electronic atrial pacemaker Left axis deviation Inferior-posterior infarct , age undetermined Abnormal ECG When compared with ECG of 03.16.2019 Electronic pacing is now present Confirmed by Aidan Crenshaw ([id number]) on 05/12/2019 6:45:51 AM Referred By: Confirmed By:Aidan Alcantara
== END 2019-05-11 18:05 | disposition home or self-care (01) ==
LOC: ER 14:42
DX: E86.0 Dehydration (principal); N17.9 Acute kidney failure, unspecified
CPT/HCPCS: 70450; 71045; 74177; 81001; 83690; 84484; 85025; 93005; 96360; 99284; J7030; Q9967; 82040; 82247; 82310; 82374; 82435; 82565; 82947; 84075; 84132; 84155; 84295; 84450; 84460; 84520

== ENCOUNTER → 2019-05-11 | Outpatient (CLI) | payer OTHER | LOC: AMB 14:01 | PROVIDERS: ATTEND Nurse Practitioner | DX: R42 Dizziness and giddiness (principal); R11.0 Nausea; M54.2 Cervicalgia | CPT/HCPCS: A0425; A0427 ==